=== PATIENT | female | born 1995 | race Asian ===

== ENCOUNTER 2017-04-17 10:36 | Emergency (ER) | payer BC ==
[~2017-04-17] VITALS: Ht 154.9 cm; Wt 49.0 kg
[2017-04-17 10:44] VITALS: BP_SYST 118
== END 2017-04-17 12:15 | disposition home or self-care (01) ==
LOC: SED 10:36
DX: S93.401A Sprain of unspecified ligament of right ankle, initial encounter (principal); W18.43XA Slipping, tripping and stumbling without falling due to stepping from one level to another, initial encounter; Y93.89 Activity, other specified; Y92.89 Other specified places as the place of occurrence of the external cause; Y99.8 Other external cause status
CPT/HCPCS: 99284